=== PATIENT | male | born 1965 | race African-American/Black ===

== ENCOUNTER 2018-06-20 08:27 | Emergency (ER) | payer MEDICAID, OTHER ==
[~2018-06-20] VITALS: Ht 167.6 cm; Wt 79.0 kg
[2018-06-20 11:30] LABS: HEMATOCRIT. 39.7 % (42.0-52.0); HEMOGLOBIN. 13.6 g/dL (14.0-18.0); MEAN CORPUSCULAR HEMOGLOBIN 30.7 pg (28.0-32.0); MEAN CORPUSCULAR VOLUME 89.4 fL (80.0-94.0); PLATELET 98 x1000/uL (130-400); RED BLOOD CELL COUNT 4.44 mill/uL (4.7-6.1); RED CELL DISTRIBUTION WIDTH 13.7 % (11.6-14.6)
[2018-06-20 11:39] LABS: CHLORIDE 96 mEq/L (98-107)
[2018-06-20 11:48] LABS: PLATELET ESTIMATE DECREAS
[2018-06-20 15:37] VITALS: BP 147/91
== END 2018-06-20 15:38 | disposition home or self-care (01) ==
LOC: ER 08:48
DX: N50.1 Vascular disorders of male genital organs (principal); I10 Essential (primary) hypertension
CPT/HCPCS: 36415; 76870; 80048; 85025; 93976; 99285

== ENCOUNTER 2019-06-10 10:01 | Inpatient (IN) | payer MEDICAID ==
[~2019-06-10] VITALS: Ht 167.6 cm; Wt 70.8 kg
[2019-06-10] MEDS ORDERED: ASPIRIN 81MG TABLET PO ONE (11:15)
[2019-06-10 11:18] LABS: BASOPHILS % 2.3 % (0.0-2.0); HEMATOCRIT. 43.7 % (42.0-52.0); HEMOGLOBIN. 15.1 g/dL (14.0-18.0); LYMPHOCYTES % 16.3 % (20.0-50.0); MEAN CORPUSCULAR HEMOGLOBIN 30.8 pg (28.0-32.0); MEAN CORPUSCULAR VOLUME 89.1 fL (80.0-94.0); MEAN PLATELET VOLUME 8.4 fl (7.4-10.4); MONOCYTES % 9.8 % (2.0-8.0); NEUTROPHILS % 70.6 % (40.0-76.0); PLATELET 122 x1000/uL (130-400); RED CELL DISTRIBUTION WIDTH 16.5 % (11.6-14.6)
[2019-06-10 11:32] LABS: CHLORIDE 91 mEq/L (98-107)
[2019-06-10 11:36] LABS: ETHANOL BLOOD < 10 mg/dL
[2019-06-10 11:39] LABS: LDL CHOLESTEROL 207 mg/dL (5-100)
[2019-06-10] MEDS ORDERED: ASPIRIN 81MG EC TABLET PO ONE (12:00)
[2019-06-10 12:05] LABS: CLARITY URINE CLEAR (CLEAR); COLOR URINE YELLOW (YELLOW); KETONES URINE NEGATIVE (NEGATIVE); LEUKOCYTE ESTERASE URINE NEGATIVE (NEGATIVE); NITRITE URINE NEGATIVE (NEGATIVE); OCCULT BLOOD URINE TRACE (NEGATIVE); PH URINE 6.5 (4.5-8.0); PROTEIN URINE 2+ (NEGATIVE); SPECIFIC GRAVITY URINE 1.014 (1.005-1.030)
[2019-06-10] MEDS ORDERED: DIPHENHYDRAMINE 50MG CAPSULE PO ONE (12:15)
[2019-06-10] MEDS ORDERED: MORPHINE SULFATE 4 MG/ML CPJ (NOT FOR IM USE) IV ONE (13:30)
[2019-06-10] MEDS ORDERED: SODIUM CHLORIDE 0.9% 1,000 ML IV ONE (13:30)
[2019-06-10 16:04] LABS: D-DIMER 0.19 mg/L FEU (<0.50); INR 1.4; PROTHROMBIN TIME 13.8 sec (9.6-11.0)
[2019-06-10 17:15] VITALS: BP 160/88
[2019-06-10 17:16] VITALS: BP 169/88
[2019-06-10] MEDS ORDERED: MAGNESIUM/ALUMINUM HYDROXIDE/SIMETHICONE 30ML UDC PO PRN (17:45)
[2019-06-10] MEDS ORDERED: DOCUSATE SODIUM 100MG CAPSULE PO PRN (17:45)
[2019-06-10] MEDS ORDERED: MORPHINE SULFATE 2 MG/ML CPJ (NOT FOR IM USE) IV PRN (17:45)
[2019-06-10] MEDS ORDERED: ONDANSETRON HCL 4MG/2ML INJ IV PRN (17:45)
[2019-06-10] MEDS ORDERED: ACETAMINOPHEN 325MG TABLET PO PRN (17:45)
[2019-06-10] MEDS ORDERED: GUAIFENESIN 200MG/10ML SUGAR FREE UDC PO PRN (17:45)
[2019-06-10] MEDS ORDERED: HYDROCODONE/ACETAMINOPHEN 5/325MG TABLET PO PRN (17:45)
[2019-06-10] MEDS ORDERED: IPRATROPIUM/ALBUTEROL 0.5-3(2.5)MG/3ML NEB NEB PRN (17:45)
[2019-06-10] MEDS ORDERED: CLONIDINE 0.1MG TABLET PO PRN (17:45)
[2019-06-10] MEDS: AMLODIPINE 10MG TABLET PO SCH (18:51)
[2019-06-10 20:00] VITALS: BP 138/95
[2019-06-10] MEDS ORDERED: ENOXAPARIN 40MG/0.4ML SYR SUBCUT SCH (20:00)
[2019-06-10] MEDS: METOPROLOL TARTRATE 25MG TABLET PO SCH (20:49)
[2019-06-10] MEDS: ENOXAPARIN 80MG/0.8ML SYR SUBCUT SCH (20:50)
[2019-06-10] MEDS ORDERED: ATORVASTATIN CALCIUM 40MG TABLET PO SCH (21:00)
[2019-06-11] VITALS: BP 130/84
[2019-06-11 00:56] LABS: CREATINE KINASE 925 IU/L (39-308); CREATINE KINASE MB FRACTION 4.9 ng/mL (0.5-3.6)
[2019-06-11 04:00] VITALS: BP 118/81
[2019-06-11 07:38] LABS: BASOPHILS % 3.3 % (0.0-2.0); EOSINOPHILS % 4.4 % (0.0-5.0); HEMATOCRIT. 44.2 % (42.0-52.0); HEMOGLOBIN. 15.2 g/dL (14.0-18.0); LYMPHOCYTES % 21.8 % (20.0-50.0); MEAN CORPUSCULAR HEMOGLOBIN 30.9 pg (28.0-32.0); MEAN CORPUSCULAR VOLUME 89.6 fL (80.0-94.0); MEAN PLATELET VOLUME 9.4 fl (7.4-10.4); MONOCYTES % 8.6 % (2.0-8.0); NEUTROPHILS % 61.9 % (40.0-76.0); PLATELET 110 x1000/uL (130-400); RED BLOOD CELL COUNT 4.93 mill/uL (4.7-6.1); RED CELL DISTRIBUTION WIDTH 17.4 % (11.6-14.6)
[2019-06-11 07:44] LABS: CHLORIDE 99 mEq/L (98-107)
[2019-06-11 07:59] LABS: CREATINE KINASE 914 IU/L (39-308); HDL CHOLESTEROL 32 mg/dL (40-59)
[2019-06-11 08:00] VITALS: BP 126/91
[2019-06-11 08:03] LABS: LDL CHOLESTEROL 273 mg/dL (5-100)
[2019-06-11 08:08] LABS: CREATINE KINASE MB FRACTION 4.3 ng/mL (0.5-3.6)
[2019-06-11] MEDS: AMLODIPINE 10MG TABLET PO SCH (08:26)
[2019-06-11] MEDS: METOPROLOL TARTRATE 25MG TABLET PO SCH (08:27)
[2019-06-11] MEDS: ENOXAPARIN 80MG/0.8ML SYR SUBCUT SCH (08:27)
[2019-06-11] MEDS ORDERED: ASPIRIN 81MG EC TABLET PO SCH (09:00)
[2019-06-11 12:00] VITALS: BP 123/86
[2019-06-11 16:00] VITALS: BP 134/98
[2019-06-11] MEDS ORDERED: LORAZEPAM 1MG TABLET PO PRN (19:10)
[2019-06-11] MEDS ORDERED: ENOXAPARIN 80MG/0.8ML SYR SUBCUT SCH (21:00)
== END 2019-06-11 20:40 | disposition left against medical advice (07) | DRG 197 ==
LOC: ER 10:01 → 5WST 14:33 → ENRESERV 15:26
PROVIDERS: ADMIT Hospitalist; ATTEND Hospitalist
DX: I82.401 Acute embolism and thrombosis of unspecified deep veins of right lower extremity (principal); I24.9 Acute ischemic heart disease, unspecified; E87.1 Hypo-osmolality and hyponatremia; I10 Essential (primary) hypertension; E78.5 Hyperlipidemia, unspecified; F10.10 Alcohol abuse, uncomplicated; R74.0 Nonspecific elevation of levels of transaminase and lactic acid dehydrogenase [LDH]; E80.6 Other disorders of bilirubin metabolism; Z53.21 Procedure and treatment not carried out due to patient leaving prior to being seen by health care provider
CPT/HCPCS: 36415; 71045; 71275; 76705; 80061; 80320; 81003; 82140; 82550; 82553; 83721; 83880; 84484; 85379; 93005; 93306; 93970; 99285; J1650; J2270; Q0163; G0480

== ENCOUNTER 2020-12-08 22:22 | Inpatient (IN) | payer MEDICAID, OTHER ==
[~2020-12-08] VITALS: Ht 167.6 cm; Wt 78.5 kg
[2020-12-08] MEDS ORDERED: KETOROLAC 30MG/ML VIAL IV STA (22:48)
[2020-12-08] MEDS ORDERED: ONDANSETRON HCL 4MG/2ML INJ IV STA ×2 (22:48→23:44)
[2020-12-08] MEDS ORDERED: MAGNESIUM/ALUMINUM HYDROXIDE/SIMETHICONE 30ML UDC PO STA (22:48)
[2020-12-08] MEDS ORDERED: SODIUM CHLORIDE 0.9% 1,000 ML IV ONE (23:00)
[2020-12-08 23:07] LABS: HEMATOCRIT. 39.7 % (42.0-52.0); HEMOGLOBIN. 13.6 g/dL (14.0-18.0); MEAN CORPUSCULAR HEMOGLOBIN 29.3 pg (28.0-32.0); MEAN CORPUSCULAR VOLUME 85.7 fL (80.0-94.0); PLATELET 94 x1000/uL (130-400); RED BLOOD CELL COUNT 4.63 mill/uL (4.7-6.1)
[2020-12-08 23:11] LABS: CHLORIDE 97 mEq/L (98-107)
[2020-12-08 23:15] LABS: ETHANOL BLOOD < 10 mg/dL
[2020-12-08 23:24] LABS: PLATELET ESTIMATE DECREASED
[2020-12-08] MEDS ORDERED: MORPHINE SULFATE 4 MG/ML CPJ (NOT FOR IM USE) IV STA (23:44)
[2020-12-09] MEDS ORDERED: POTASSIUM CHLORIDE INJ 40 MEQ in DEXT 5% WATER 500 ML IV ONE (00:30)
[2020-12-09 03:26] LABS: CLARITY URINE CLEAR (CLEAR); COLOR URINE DK YELLOW (YELLOW); KETONES URINE 1+ (NEGATIVE); LEUKOCYTE ESTERASE URINE NEGATIVE (NEGATIVE); NITRITE URINE NEGATIVE (NEGATIVE); OCCULT BLOOD URINE TRACE (NEGATIVE); PROTEIN URINE TRACE (NEGATIVE); SPECIFIC GRAVITY URINE 1.021 (1.005-1.030)
[2020-12-09 03:41] LABS: *AMPHETAMINES SCREEN URINE NEGATIVE (NEGATIVE)
[2020-12-09 03:42] LABS: *BARBITURATES SCREEN URINE NEGATIVE (NEGATIVE); *BENZODIAZEPINES SCREEN URINE NEGATIVE (NEGATIVE); *COCAINE SCREEN URINE NEGATIVE (NEGATIVE); METHADONE URINE SCREEN NEGATIVE (NEGATIVE); OPIATES URINE SCREEN PRESUMTIVE POSITIVE (NEGATIVE); PHENCYCLIDINE URINE SCREEN NEGATIVE (NEGATIVE)
[2020-12-09 03:43] LABS: CANNABINOID URINE SCREEN NEGATIVE (NEGATIVE)
[2020-12-09] MEDS: MORPHINE SULFATE 2 MG/ML CPJ (NOT FOR IM USE) IV PRN ×4 (06:55→21:46)
[2020-12-09] MEDS ORDERED: ONDANSETRON HCL 4MG/2ML INJ IV PRN (09:45)
[2020-12-09 10:00] VITALS: BP 159/87
[2020-12-09 10:36] VITALS: BP 159/87
[2020-12-09] MEDS ORDERED: HYDR25TA PO (10:36)
[2020-12-09] MEDS: LEVOFLOXACIN 500MG PREMIX 100 ML IV SCH (11:04)
[2020-12-09] MEDS: SODIUM CHLORIDE 0.45% 1,000 ML IV SCH ×2 (11:04→20:54)
[2020-12-09 12:12] LABS: HEPATITIS B SURFACE ANTIGEN NEGATIVE
[2020-12-09] MEDS: ACETAMINOPHEN 325MG TABLET PO PRN (12:33)
[2020-12-09 12:41] LABS: HEPATITIS A AB IGM NEGATIVE (NEGATIVE)
[2020-12-09 16:00] VITALS: BP 140/89
[2020-12-09] MEDS ORDERED: DEXTROSE 50% WATER 50ML SYRINGE IV PRN (17:15)
[2020-12-09] MEDS: INSULIN LISPRO 100 UNITS/ML SUBCUT SCH ×2 (17:40→21:00)
[2020-12-09] MEDS: BLOOD SUGAR DIAGNOSTIC STRIP TEST SCH ×2 (17:53→21:38)
[2020-12-09 20:00] VITALS: BP 134/76
[2020-12-09 22:00] VITALS: BP 145/74
[2020-12-10] VITALS: BP 150/78
[2020-12-10 02:00] VITALS: BP 130/69
[2020-12-10] MEDS: MORPHINE SULFATE 2 MG/ML CPJ (NOT FOR IM USE) IV PRN ×4 (03:31→18:51)
[2020-12-10 04:21] VITALS: BP 136/77
[2020-12-10] MEDS: SODIUM CHLORIDE 0.45% 1,000 ML IV SCH ×2 (05:33→15:59)
[2020-12-10] MEDS: BLOOD SUGAR DIAGNOSTIC STRIP TEST SCH ×4 (05:45→21:00)
[2020-12-10] MEDS: INSULIN LISPRO 100 UNITS/ML SUBCUT SCH ×4 (05:46→21:00)
[2020-12-10 07:05] LABS: HEMATOCRIT. 33.1 % (42.0-52.0); HEMOGLOBIN. 11.2 g/dL (14.0-18.0); MEAN CORPUSCULAR HEMOGLOBIN 29.1 pg (28.0-32.0); MEAN CORPUSCULAR VOLUME 86.2 fL (80.0-94.0); PLATELET 92 x1000/uL (130-400); RED BLOOD CELL COUNT 3.84 mill/uL (4.7-6.1); RED CELL DISTRIBUTION WIDTH 14.5 % (11.6-14.6)
[2020-12-10 07:20] LABS: CHLORIDE 97 mEq/L (98-107)
[2020-12-10] MEDS: ACETAMINOPHEN 325MG TABLET PO PRN ×2 (11:08→21:18)
[2020-12-10] MEDS: LEVOFLOXACIN 500MG PREMIX 100 ML IV SCH (11:09)
[2020-12-10 14:19] LABS: PLATELET ESTIMATE SLIGHTLY DECREASED
[2020-12-10] MEDS ORDERED: POTASSIUM CHLORIDE 20MEQ TABLET SR PO NR (14:45)
[2020-12-10 20:00] VITALS: BP 122/69
[2020-12-11 00:01] VITALS: BP 143/86
[2020-12-11] MEDS: MORPHINE SULFATE 2 MG/ML CPJ (NOT FOR IM USE) IV PRN ×6 (00:15→22:00)
[2020-12-11] MEDS: SODIUM CHLORIDE 0.45% 1,000 ML IV SCH ×3 (00:20→21:59)
[2020-12-11] MEDS: ACETAMINOPHEN 325MG TABLET PO PRN ×3 (03:05→19:52)
[2020-12-11 04:03] VITALS: BP 138/76
[2020-12-11] MEDS: BLOOD SUGAR DIAGNOSTIC STRIP TEST SCH ×4 (05:31→20:47)
[2020-12-11] MEDS: INSULIN LISPRO 100 UNITS/ML SUBCUT SCH ×4 (05:54→20:52)
[2020-12-11 06:30] LABS: HEMATOCRIT. 33.8 % (42.0-52.0); HEMOGLOBIN. 11.6 g/dL (14.0-18.0); MEAN CORPUSCULAR HEMOGLOBIN 29.4 pg (28.0-32.0); MEAN CORPUSCULAR VOLUME 85.6 fL (80.0-94.0); MEAN PLATELET VOLUME 9.1 fl (7.4-10.4); PLATELET 118 x1000/uL (130-400); RED BLOOD CELL COUNT 3.95 mill/uL (4.7-6.1); RED CELL DISTRIBUTION WIDTH 14.5 % (11.6-14.6)
[2020-12-11 07:15] LABS: CHLORIDE 97 mEq/L (98-107)
[2020-12-11 08:00] VITALS: BP 153/98
[2020-12-11] MEDS ORDERED: POTASSIUM CHLORIDE 20MEQ TABLET SR PO NR (09:15)
[2020-12-11] MEDS: LEVOFLOXACIN 500MG PREMIX 100 ML IV SCH (11:28)
[2020-12-11 12:00] VITALS: BP 148/90
[2020-12-11 16:00] VITALS: BP 141/92
[2020-12-11 17:01] LABS: PLATELET ESTIMATE DECREASED
[2020-12-11] MEDS: METFORMIN HCL 500MG TABLET PO SCH (18:10)
[2020-12-11 20:00] VITALS: BP 138/93
[2020-12-12] VITALS: BP 140/88
[2020-12-12] MEDS: ACETAMINOPHEN 325MG TABLET PO PRN ×3 (00:06→23:35)
[2020-12-12] MEDS: MORPHINE SULFATE 2 MG/ML CPJ (NOT FOR IM USE) IV PRN ×5 (02:14→20:33)
[2020-12-12 03:42] VITALS: BP 138/88
[2020-12-12] MEDS: BLOOD SUGAR DIAGNOSTIC STRIP TEST SCH ×4 (05:39→21:00)
[2020-12-12] MEDS: INSULIN LISPRO 100 UNITS/ML SUBCUT SCH ×4 (05:39→21:00)
[2020-12-12 05:57] LABS: HEMATOCRIT. 34.1 % (42.0-52.0); HEMOGLOBIN. 11.4 g/dL (14.0-18.0); MEAN CORPUSCULAR HEMOGLOBIN 28.9 pg (28.0-32.0); MEAN CORPUSCULAR VOLUME 86.6 fL (80.0-94.0); MEAN PLATELET VOLUME 8.9 fl (7.4-10.4); PLATELET 171 x1000/uL (130-400); RED BLOOD CELL COUNT 3.93 mill/uL (4.7-6.1); RED CELL DISTRIBUTION WIDTH 14.6 % (11.6-14.6)
[2020-12-12 06:31] LABS: CHLORIDE 98 mEq/L (98-107)
[2020-12-12 08:00] VITALS: BP 153/92
[2020-12-12] MEDS ORDERED: POTASSIUM CHLORIDE 20MEQ TABLET SR PO SCH (09:15)
[2020-12-12] MEDS: METFORMIN HCL 500MG TABLET PO SCH ×2 (09:20→17:36)
[2020-12-12] MEDS: SODIUM CHLORIDE 0.45% 1,000 ML IV SCH ×2 (09:20→17:38)
[2020-12-12] MEDS: LEVOFLOXACIN 500MG PREMIX 100 ML IV SCH (11:47)
[2020-12-12 12:00] VITALS: BP 138/93
[2020-12-12 13:40] LABS: PLATELET ESTIMATE NORMAL
[2020-12-12 16:00] VITALS: BP 149/94
[2020-12-12 20:00] VITALS: BP 138/89
[2020-12-13] VITALS: BP 135/84
[2020-12-13] MEDS: MORPHINE SULFATE 2 MG/ML CPJ (NOT FOR IM USE) IV PRN ×4 (03:00→20:32)
[2020-12-13 04:00] VITALS: BP 125/81
[2020-12-13] MEDS: SODIUM CHLORIDE 0.45% 1,000 ML IV SCH ×3 (04:56→23:29)
[2020-12-13] MEDS: INSULIN LISPRO 100 UNITS/ML SUBCUT SCH ×4 (06:36→20:28)
[2020-12-13] MEDS: BLOOD SUGAR DIAGNOSTIC STRIP TEST SCH ×4 (06:36→20:18)
[2020-12-13 07:10] LABS: HEMATOCRIT. 33.7 % (42.0-52.0); HEMOGLOBIN. 11.2 g/dL (14.0-18.0); MEAN CORPUSCULAR HEMOGLOBIN 28.7 pg (28.0-32.0); MEAN PLATELET VOLUME 8.6 fl (7.4-10.4); PLATELET 197 x1000/uL (130-400); RED BLOOD CELL COUNT 3.92 mill/uL (4.7-6.1); RED CELL DISTRIBUTION WIDTH 15.1 % (11.6-14.6)
[2020-12-13 07:38] LABS: CHLORIDE 102 mEq/L (98-107)
[2020-12-13 07:43] LABS: AMYLASE 103 IU/L (25-115)
[2020-12-13] MEDS: METFORMIN HCL 500MG TABLET PO SCH ×2 (09:25→19:00)
[2020-12-13 09:59] VITALS: BP 131/84
[2020-12-13] MEDS: LEVOFLOXACIN 500MG PREMIX 100 ML IV SCH (10:57)
[2020-12-13 12:13] VITALS: BP 136/84
[2020-12-13 15:57] LABS: PLATELET ESTIMATE NORMAL
[2020-12-13 20:00] VITALS: BP 120/84
[2020-12-13] MEDS: ACETAMINOPHEN 325MG TABLET PO PRN (23:31)
[2020-12-14] VITALS: BP 148/83
[2020-12-14 04:00] VITALS: BP 122/81
[2020-12-14] MEDS: MORPHINE SULFATE 2 MG/ML CPJ (NOT FOR IM USE) IV PRN ×3 (05:06→20:32)
[2020-12-14] MEDS: BLOOD SUGAR DIAGNOSTIC STRIP TEST SCH ×4 (06:15→21:00)
[2020-12-14] MEDS: METFORMIN HCL 500MG TABLET PO SCH ×2 (06:36→18:37)
[2020-12-14 06:37] LABS: HEMATOCRIT. 32.1 % (42.0-52.0); HEMOGLOBIN. 10.7 g/dL (14.0-18.0); MEAN CORPUSCULAR HEMOGLOBIN 28.6 pg (28.0-32.0); MEAN CORPUSCULAR VOLUME 86.1 fL (80.0-94.0); MEAN PLATELET VOLUME 8.3 fl (7.4-10.4); PLATELET 254 x1000/uL (130-400); RED BLOOD CELL COUNT 3.73 mill/uL (4.7-6.1); RED CELL DISTRIBUTION WIDTH 14.8 % (11.6-14.6)
[2020-12-14] MEDS: INSULIN LISPRO 100 UNITS/ML SUBCUT SCH ×4 (06:42→21:00)
[2020-12-14 07:36] LABS: CHLORIDE 104 mEq/L (98-107)
[2020-12-14 07:41] LABS: AMYLASE 107 IU/L (25-115)
[2020-12-14 08:00] VITALS: BP 124/80
[2020-12-14 08:48] LABS: PLATELET ESTIMATE NORMAL
[2020-12-14] MEDS: ACETAMINOPHEN 325MG TABLET PO PRN (10:00)
[2020-12-14] MEDS: SODIUM CHLORIDE 0.45% 1,000 ML IV SCH ×2 (10:01→20:00)
[2020-12-14 12:00] VITALS: BP 118/82
[2020-12-14 20:00] VITALS: BP 132/80
[2020-12-15] VITALS: BP 120/87
[2020-12-15] MEDS: SODIUM CHLORIDE 0.45% 1,000 ML IV SCH ×2 (03:57→15:17)
[2020-12-15] MEDS: MORPHINE SULFATE 2 MG/ML CPJ (NOT FOR IM USE) IV PRN ×3 (03:57→21:19)
[2020-12-15 04:00] VITALS: BP 114/68
[2020-12-15] MEDS: BLOOD SUGAR DIAGNOSTIC STRIP TEST SCH ×4 (05:34→21:33)
[2020-12-15] MEDS: INSULIN LISPRO 100 UNITS/ML SUBCUT SCH ×4 (05:34→21:00)
[2020-12-15 06:14] LABS: CHLORIDE 102 mEq/L (98-107)
[2020-12-15 06:18] LABS: HEMATOCRIT. 30.1 % (42.0-52.0); HEMOGLOBIN. 10.1 g/dL (14.0-18.0); MEAN CORPUSCULAR VOLUME 85.9 fL (80.0-94.0); MEAN PLATELET VOLUME 8.1 fl (7.4-10.4); PLATELET 310 x1000/uL (130-400); RED CELL DISTRIBUTION WIDTH 14.9 % (11.6-14.6)
[2020-12-15 08:00] VITALS: BP 120/77
[2020-12-15] MEDS: METFORMIN HCL 500MG TABLET PO SCH ×2 (08:33→18:31)
[2020-12-15] MEDS: ACETAMINOPHEN 325MG TABLET PO PRN (08:35)
[2020-12-15 12:00] VITALS: BP 116/68
[2020-12-15 16:00] VITALS: BP 118/75
[2020-12-15 16:27] LABS: PLATELET ESTIMATE NORMAL
[2020-12-15 20:00] VITALS: BP 138/80
[2020-12-16] VITALS: BP 122/64
[2020-12-16] MEDS: SODIUM CHLORIDE 0.45% 1,000 ML IV SCH ×2 (01:24→12:51)
[2020-12-16] MEDS: ACETAMINOPHEN 325MG TABLET PO PRN ×2 (01:29→10:25)
[2020-12-16 04:00] VITALS: BP 134/82
[2020-12-16] MEDS: MORPHINE SULFATE 2 MG/ML CPJ (NOT FOR IM USE) IV PRN (06:28)
[2020-12-16] MEDS: BLOOD SUGAR DIAGNOSTIC STRIP TEST SCH ×2 (06:32→12:51)
[2020-12-16 06:44] LABS: HEMATOCRIT. 30.8 % (42.0-52.0); HEMOGLOBIN. 10.2 g/dL (14.0-18.0); MEAN CORPUSCULAR HEMOGLOBIN 28.4 pg (28.0-32.0); MEAN CORPUSCULAR VOLUME 85.9 fL (80.0-94.0); MEAN PLATELET VOLUME 7.9 fl (7.4-10.4); PLATELET 378 x1000/uL (130-400); RED BLOOD CELL COUNT 3.59 mill/uL (4.7-6.1); RED CELL DISTRIBUTION WIDTH 14.9 % (11.6-14.6)
[2020-12-16 06:57] LABS: CHLORIDE 104 mEq/L (98-107)
[2020-12-16] MEDS: INSULIN LISPRO 100 UNITS/ML SUBCUT SCH ×2 (07:40→12:40)
[2020-12-16 08:00] VITALS: BP 130/85
[2020-12-16] MEDS: METFORMIN HCL 500MG TABLET PO SCH (08:27)
[2020-12-16 12:00] VITALS: BP 118/79
[2020-12-16] MEDS ORDERED: METF500T PO (12:58)
[2020-12-16 14:02] LABS: PLATELET ESTIMATE NORMAL
[2020-12-16 14:19] VITALS: BP 118/79
== END 2020-12-16 17:30 | disposition home or self-care (01) | DRG 720 ==
LOC: ER 22:22 → 8WST 12-09 00:22 → ENRESERV 12-09 07:21 → 8WST 12-09 08:03
PROVIDERS: ADMIT Internal Medicine; ATTEND Internal Medicine
DX: A41.9 Sepsis, unspecified organism (principal); K85.90 Acute pancreatitis without necrosis or infection, unspecified; N17.0 Acute kidney failure with tubular necrosis; E44.0 Moderate protein-calorie malnutrition; E11.9 Type 2 diabetes mellitus without complications; D69.6 Thrombocytopenia, unspecified; E87.1 Hypo-osmolality and hyponatremia; E87.6 Hypokalemia; E87.8 Other disorders of electrolyte and fluid balance, not elsewhere classified; I10 Essential (primary) hypertension; K76.0 Fatty (change of) liver, not elsewhere classified; F10.10 Alcohol abuse, uncomplicated; Y90.9 Presence of alcohol in blood, level not specified; Z79.899 Other long term (current) drug therapy; Z68.27 Body mass index [BMI] 27.0-27.9, adult; K70.0 Alcoholic fatty liver
CPT/HCPCS: 36415; 74176; 76705; 80048; 80053; 80305; 80320; 81003; 82150; 82962; 83036; 84145; 85025; 86705; 86709; 86803; 87340; 93005; 99291; J1815; J1885; J1956; J2270; J2405; J3480; J7030; J7040; J7060; G0480

== ENCOUNTER 2022-03-01 06:28 | Emergency (ER) | payer MEDICAID, OTHER ==
[~2022-03-01] VITALS: Ht 175.3 cm; Wt 77.0 kg
[~2022-03-01 06:28] MED LIST: HYDR25TA PO; METF500T PO; OMEP40CA20 MT
[2022-03-01] MEDS ORDERED: KETOROLAC 30MG/ML VIAL IV STA (07:09)
[2022-03-01 07:32] LABS: BASOPHILS % 1.5 % (0.0-2.0); EOSINOPHILS % 3.2 % (0.0-5.0); HEMATOCRIT. 38.7 % (42.0-52.0); HEMOGLOBIN. 12.4 g/dL (14.0-18.0); LYMPHOCYTES % 19.5 % (20.0-50.0); MEAN CORPUSCULAR HEMOGLOBIN 26.7 pg (28.0-32.0); MEAN CORPUSCULAR VOLUME 83.2 fL (80.0-94.0); MEAN PLATELET VOLUME 7.6 fl (7.4-10.4); MONOCYTES % 8.3 % (2.0-8.0); NEUTROPHILS % 67.5 % (40.0-76.0); PLATELET 314 x1000/uL (130-400); RED BLOOD CELL COUNT 4.65 mill/uL (4.7-6.1); RED CELL DISTRIBUTION WIDTH 14.8 % (11.6-14.6)
[2022-03-01 07:40] LABS: CHLORIDE 102 mEq/L (98-107)
[2022-03-01 07:41] LABS: CLARITY URINE CLEAR (CLEAR); COLOR URINE YELLOW (YELLOW); KETONES URINE NEGATIVE (NEGATIVE); LEUKOCYTE ESTERASE URINE NEGATIVE (NEGATIVE); NITRITE URINE NEGATIVE (NEGATIVE); OCCULT BLOOD URINE NEGATIVE (NEGATIVE); PH URINE 7.5 (4.5-8.0); PROTEIN URINE NEGATIVE (NEGATIVE)
[2022-03-01] MEDS ORDERED: TOPUD PO (08:47)
[2022-03-01 09:18] VITALS: BP 129/88
== END 2022-03-01 09:18 | disposition home or self-care (01) ==
LOC: ER 06:28
DX: R10.84 Generalized abdominal pain (principal); I10 Essential (primary) hypertension; D50.9 Iron deficiency anemia, unspecified; E11.9 Type 2 diabetes mellitus without complications
CPT/HCPCS: 36415; 80053; 81003; 83690; 85025; 93005; 96374; 99284; J1885

== ENCOUNTER 2022-08-14 10:11 | Emergency (ER) | payer MEDICAID, OTHER ==
[~2022-08-14] VITALS: Ht 175.3 cm; Wt 70.0 kg
[~2022-08-14 10:11] MED LIST changes: +TOPUD PO
[2022-08-14] MEDS ORDERED: ASPIRIN 325MG EC TABLET PO ONE (10:45)
[2022-08-14] MEDS ORDERED: ASPIRIN 325MG EC TABLET PO NR (11:00)
[2022-08-14] MEDS ORDERED: NITROGLYCERIN 0.4MG TABLET SL SL NR (11:00)
[2022-08-14 11:46] LABS: BASOPHILS % 1.8 % (0.0-2.0); EOSINOPHILS % 1.7 % (0.0-5.0); HEMATOCRIT. 37.7 % (42.0-52.0); HEMOGLOBIN. 12.1 g/dL (14.0-18.0); LYMPHOCYTES % 21.9 % (20.0-50.0); MEAN CORPUSCULAR HEMOGLOBIN 27.4 pg (28.0-32.0); MEAN CORPUSCULAR VOLUME 85.6 fL (80.0-94.0); MEAN PLATELET VOLUME 7.6 fl (7.4-10.4); MONOCYTES % 7.3 % (2.0-8.0); NEUTROPHILS % 67.3 % (40.0-76.0); PLATELET 293 x1000/uL (130-400); RED BLOOD CELL COUNT 4.41 mill/uL (4.7-6.1); RED CELL DISTRIBUTION WIDTH 16.1 % (11.6-14.6)
[2022-08-14 12:14] LABS: CHLORIDE 103 mEq/L (98-107)
[2022-08-14 12:28] LABS: ETHANOL BLOOD < 10 mg/dL
[2022-08-14] MEDS ORDERED: ASPI-1497 MT (14:58)
[2022-08-14] MEDS ORDERED: NITR0.4T SL (14:58)
[2022-08-14 15:43] VITALS: BP 134/88
[2022-08-14 16:10] LABS: *AMPHETAMINES SCREEN URINE NEGATIVE (NEGATIVE); *BARBITURATES SCREEN URINE NEGATIVE (NEGATIVE); *BENZODIAZEPINES SCREEN URINE NEGATIVE (NEGATIVE); *COCAINE SCREEN URINE NEGATIVE (NEGATIVE); CANNABINOID URINE SCREEN NEGATIVE (NEGATIVE); METHADONE URINE SCREEN NEGATIVE (NEGATIVE); OPIATES URINE SCREEN NEGATIVE (NEGATIVE); PHENCYCLIDINE URINE SCREEN NEGATIVE (NEGATIVE)
== END 2022-08-14 15:57 | disposition home or self-care (01) ==
LOC: ER 10:11
DX: R07.89 Other chest pain (principal); I10 Essential (primary) hypertension; Z00.00 Encounter for general adult medical examination without abnormal findings; F10.229 Alcohol dependence with intoxication, unspecified; E11.9 Type 2 diabetes mellitus without complications; F12.10 Cannabis abuse, uncomplicated; Z79.899 Other long term (current) drug therapy
CPT/HCPCS: 36415; 71045; 80053; 80305; 80320; 83880; 84484; 85025; 93005; 99285; G0480

== ENCOUNTER 2023-06-26 13:24 | Emergency (ER) | payer MEDICAID ==
[~2023-06-26] VITALS: Ht 175.3 cm; Wt 68.0 kg
[~2023-06-26 13:24] MED LIST changes: +ASPI-1497 MT; +NITR0.4T SL
[2023-06-26 13:39] VITALS: TEMP 98.4; O2SAT 100
[2023-06-26 14:00] VITALS: BP 135/94; PULSE 100; RESP 16
[2023-06-26] MEDS ORDERED: LIDOCAINE 5% PATCH TOP SCH (14:00)
[2023-06-26] MEDS ORDERED: KETOROLAC 30MG/ML VIAL IM NR (14:00)
[2023-06-26] MEDS ORDERED: KETOROLAC 30MG/ML VIAL IM ONE (14:00)
[2023-06-26] MEDS ORDERED: NAPR-1176 MT (16:52)
[2023-06-26] MEDS ORDERED: LIDO700A15 TP (16:52)
== END 2023-06-26 17:50 | disposition home or self-care (01) ==
LOC: ER 13:24
DX: M25.512 Pain in left shoulder (principal); F12.10 Cannabis abuse, uncomplicated; I10 Essential (primary) hypertension; E11.9 Type 2 diabetes mellitus without complications
CPT/HCPCS: 99284; 71045; 73030; 96372; J1885

== ENCOUNTER 2024-09-17 05:25 | Emergency (ER) | payer MEDICAID ==
[~2024-09-17] VITALS: Ht 177.8 cm; Wt 73.0 kg
[~2024-09-17 05:25] MED LIST changes: +LIDO700A15 TP; +NAPR-1176 MT
[2024-09-17 05:31] VITALS: TEMP 98.1; O2SAT 98
[2024-09-17 07:45] LABS: BASOPHILS % 1.5 % (0.0-2.0); HEMATOCRIT. 40.4 % (42.0-52.0); LYMPHOCYTES % 22.3 % (20.0-50.0); MEAN CORPUSCULAR HEMOGLOBIN 28.7 pg (28.0-32.0); MEAN CORPUSCULAR HGB CONC 32.2 g/dL (31.0-37.0); MEAN PLATELET VOLUME 7.5 fl (7.4-10.4); MONOCYTES % 7.3 % (2.0-8.0); NEUTROPHILS % 66.9 % (40.0-76.0); PLATELET 302 x1000/uL (130-400); RED BLOOD CELL COUNT 4.54 mill/uL (4.7-6.1); RED CELL DISTRIBUTION WIDTH 15.2 % (11.6-14.6); WHITE BLOOD COUNT 6.5 x1000/uL (4.5-11.0)
[2024-09-17 07:53] LABS: CHLORIDE 100 mEq/L (98-107); POTASSIUM 3.4 mEq/L (3.5-5.1); SODIUM 139 mEq/L (136-145)
[2024-09-17 07:54] LABS: CALCIUM 10.4 mg/dL (8.7-10.4); CARBON DIOXIDE 31 mEq/L (21-32)
[2024-09-17 07:59] LABS: CREATININE 1.2 mg/dL (0.6-1.3); GLUCOSE 127 mg/dL (70-105); UREA NITROGEN BLOOD 16 mg/dL (9-23)
[2024-09-17 08:07] LABS: TROPONIN I HIGH SENSITIVITY < 4 ng/L (3.0-53)
[2024-09-17] MEDS ORDERED: GABA-1180 MT (08:39)
[2024-09-17 09:36] VITALS: BP 156/106; PULSE 107; RESP 20
[2024-09-17] MEDS: KETOROLAC 30MG/ML VIAL IM ONE (09:36)
== END 2024-09-17 09:36 | disposition home or self-care (01) ==
LOC: ER 05:32
DX: R07.9 Chest pain, unspecified (principal); M79.603 Pain in arm, unspecified; E11.9 Type 2 diabetes mellitus without complications; I10 Essential (primary) hypertension; F12.90 Cannabis use, unspecified, uncomplicated; Z79.899 Other long term (current) drug therapy; Z76.0 Encounter for issue of repeat prescription
CPT/HCPCS: 80048; 85025; 84484; 36415; 71045; 93005; 99285; J1885; Z7610

== ENCOUNTER 2025-04-01 20:20 | Inpatient (IN) | payer MEDICAID ==
[~2025-04-01] VITALS: Ht 175.3 cm; Wt 77.1 kg
[~2025-04-01 20:20] MED LIST changes: +GABA-1180 MT; -HYDR25TA PO; +LIDO-53 TP; -LIDO700A15 TP; +LIP40 MT; +LOSA-412 MT; +METO-396 MT; +SPIR25TA MT
[2025-04-01 21:06] LABS: BASOPHILS % 0.7 % (0.0-2.0); EOSINOPHILS % 1.8 % (0.0-5.0); HEMATOCRIT. 37.2 % (42.0-52.0); HEMOGLOBIN. 12.1 g/dL (14.0-18.0); LYMPHOCYTES % 12.8 % (20.0-50.0); MEAN PLATELET VOLUME 7.5 fl (7.4-10.4); MONOCYTES % 7.3 % (2.0-8.0); NEUTROPHILS % 77.4 % (40.0-76.0); PLATELET 361 x1000/uL (130-400); RED BLOOD CELL COUNT 4.47 mill/uL (4.7-6.1); RED CELL DISTRIBUTION WIDTH 17.7 % (11.6-14.6)
[2025-04-01] MEDS: DICYCLOMINE HCL 10MG CAPSULE PO ONE (21:13)
[2025-04-01] MEDS: FAMOTIDINE 20MG TABLET PO ONE (21:13)
[2025-04-01] MEDS: MAGNESIUM/ALUMINUM HYDROXIDE/SIMETHICONE 30ML UDC PO ONE (21:13)
[2025-04-01 21:22] LABS: CLARITY URINE CLEAR (CLEAR); COLOR URINE YELLOW (YELLOW); CREATININE 1.3 mg/dL (0.6-1.3); SPECIFIC GRAVITY URINE 1.042 (1.005-1.030); UREA NITROGEN BLOOD 20 mg/dL (9-23)
[2025-04-01 21:23] LABS: ASPARTATE AMINOTRANSFERASE 25 IU/L (<34); GLUCOSE URINE NEGATIVE (NEGATIVE); KETONES URINE TRACE (NEGATIVE); LEUKOCYTE ESTERASE URINE NEGATIVE (NEGATIVE); NITRITE URINE NEGATIVE (NEGATIVE); OCCULT BLOOD URINE NEGATIVE (NEGATIVE); PH URINE 6.0 (4.5-8.0); PROTEIN URINE TRACE (NEGATIVE); UROBILINOGEN URINE 1.0 E.U./dL (0.2-1.0)
[2025-04-01 21:24] LABS: BILIRUBIN DIRECT 0.1 mg/dL (<=3.0); BILIRUBIN TOTAL 0.4 mg/dL (0.1-1.0); PROTEIN TOTAL 7.2 g/dL (6.0-8.3)
[2025-04-01] MEDS: SODIUM CHLORIDE 0.9% 1,000 ML IV ONE (23:52)
[2025-04-01] MEDS: MECLIZINE 12.5MG TABLET PO ONE (23:53)
[2025-04-02] MEDS ORDERED: NITROGLYCERIN 0.4MG TABLET SL SL PRN (01:30)
[2025-04-02 02:00] VITALS: BP 131/79; PULSE 82; RESP 19; TEMP 36.9
[2025-04-02] MEDS: HYDROCODONE/ACETAMINOPHEN 5/325MG TABLET PO PRN (03:38)
[2025-04-02] MEDS ORDERED: NALOXONE HCL 0.4MG/ML VIAL IV PRN (03:45)
[2025-04-02] MEDS ORDERED: METF-414 PO (07:30)
[2025-04-02] MEDS ORDERED: AMLO10TA80 PO (07:30)
[2025-04-02] MEDS ORDERED: HYDR50TA PO (07:30)
[2025-04-02] MEDS ORDERED: PRAV40TA58 PO (07:30)
[2025-04-02] MEDS ORDERED: TAMS-54 PO (07:30)
[2025-04-02] MEDS ORDERED: GABA-1180 PO (07:31)
[2025-04-02] MEDS: METFORMIN HCL 500MG TABLET PO SCH (07:35)
[2025-04-02 08:00] VITALS: BP 116/73; PULSE 92; RESP 20; TEMP 36.7; O2SAT 97
[2025-04-02 08:43] LABS: HEMATOCRIT. 32.4 % (42.0-52.0); HEMOGLOBIN. 10.5 g/dL (14.0-18.0); MEAN PLATELET VOLUME 7.9 fl (7.4-10.4); PLATELET 307 x1000/uL (130-400); RED BLOOD CELL COUNT 3.88 mill/uL (4.7-6.1); RED CELL DISTRIBUTION WIDTH 17.5 % (11.6-14.6)
[2025-04-02 09:06] LABS: CREATININE 1.1 mg/dL (0.6-1.3); UREA NITROGEN BLOOD 17 mg/dL (9-23)
[2025-04-02] MEDS: POTASSIUM CHLORIDE 20MEQ TABLET SR PO NR (09:06)
[2025-04-02] MEDS: LIDOCAINE 5% PATCH TOP SCH (09:06)
[2025-04-02] MEDS: LOSARTAN 25 MG TABLET PO SCH (09:07)
[2025-04-02] MEDS: GABAPENTIN 300MG CAPSULE PO SCH (09:08)
[2025-04-02] MEDS: METOPROLOL SUCCINATE 25MG ER TABLET PO SCH (09:08)
[2025-04-02] MEDS: ASPIRIN 81MG TABLET PO SCH (09:09)
[2025-04-02] MEDS: SPIRONOLACTONE 25MG TABLET PO SCH (09:10)
[2025-04-02 12:00] VITALS: BP 119/66; PULSE 95; RESP 16; TEMP 36.9; O2SAT 96
[2025-04-02] MEDS: PANTOPRAZOLE 40MG DR TABLET PO SCH (13:26)
[2025-04-02] MEDS: DEXT 5%/0.9% NACL 1,000 ML IV SCH (13:26)
[2025-04-02 16:00] VITALS: BP 118/64; PULSE 95; RESP 20; TEMP 38.4; O2SAT 98
[2025-04-02] MEDS: ACETAMINOPHEN 325MG TABLET PO PRN (16:54)
[2025-04-02 20:00] VITALS: BP 110/64; PULSE 94; RESP 20; TEMP 37.2; O2SAT 96
[2025-04-02] MEDS: ATORVASTATIN CALCIUM 40MG TABLET PO SCH (21:36)
[2025-04-03] VITALS: BP 101/63; PULSE 91; RESP 20; TEMP 36.9; O2SAT 95
[2025-04-03 00:45] LABS: LYMPHOCYTES % MANUAL 9.0 % (20.0-50.0); MONOCYTES % MANUAL 6.0 % (2.0-8.0); NEUTROPHILS % MANUAL 85.0 % (45.0-75.0); PLATELET ESTIMATE NORMAL
[2025-04-03 04:00] VITALS: BP 100/60; PULSE 99; RESP 20; TEMP 37.1; O2SAT 97
[2025-04-03 08:00] VITALS: BP 117/78; PULSE 89; RESP 17; TEMP 36.7; O2SAT 96
[2025-04-03] MEDS: KETOROLAC 15MG/ML VIAL IV PRN (09:27)
[2025-04-03 12:00] VITALS: BP 111/70; PULSE 85; RESP 17; TEMP 36.6; O2SAT 99
[2025-04-03 15:38] VITALS: BP 111/70; PULSE 85; TEMP 97.8; O2SAT 99
== END 2025-04-03 16:00 | disposition home or self-care (01) | DRG 282 ==
LOC: ER 20:20 → 7EST 23:12 → EDBEDREQTM 23:16 → EDBEDREQ 23:17 → ENRESERV 23:33
PROVIDERS: ADMIT Internal Medicine; ATTEND Internal Medicine
DX: K85.90 Acute pancreatitis without necrosis or infection, unspecified (principal); D64.9 Anemia, unspecified; E11.9 Type 2 diabetes mellitus without complications; I10 Essential (primary) hypertension; E87.6 Hypokalemia
CPT/HCPCS: 36415; 74176; 80048; 80076; 81003; 82962; 85025; 93005; 99285; A4606; J1885; J7030; J7042; J8597